=== PATIENT | male | born 1955 | race American Indian/Alaskan Native ===

== ENCOUNTER 2018-03-15 07:19 | Emergency (ER) | payer MEDICARE, OTHER ==
[2018-03-15 07:27] VITALS: TEMP 97.7; BMI 26.6
--- NOTE | 2018-03-15 07:51 | ED PDOC ---
Arrival/HPI - General Chief Complaint: Back Pain Time Seen by Provider: 03/15/18 07:22 Historian: Patient - History of Present Illness Narrative History of Present Illness (Text): 03/15/18 07:51 62 year old male whose past medical history includes diabetes, and hypertension, who presents to the Emergency department complaining of lower back pain radiating to the abdomen, which started earlier today. Patient reports that this morning while bending over to lift a box his back started hurting. He describes the pain as an aching pain that goes across his lower back to his abdomen. He took Naproxen earlier for pain alleviation. Patient denies fevers, chills, cough, shortness of breath, chest pain, dyspnea on exertion, nausea, vomiting, diarrhea, neck pain, headache, dizziness, or any other complaint. Time/Duration: 4-6 hours Symptom Onset: Sudden Symptom Course: Unchanged Quality: Aching Activities at Onset: Light Context: Home Past Medical History - Provider Review Nursing Documentation Reviewed: Yes - Infectious Disease Hx of Infectious Diseases: None - Cardiac Hx Cardiac Disorders: Yes Hx Hypertension: Yes - Pulmonary Hx Respiratory Disorders: No - Neurological Hx Neurological Disorder: No - HEENT Hx HEENT Disorder: Yes Hx Cataracts: Yes (LEFT EYE) - Renal Hx Renal Disorder: No - Endocrine/Metabolic Hx Endocrine Disorders: Yes Hx Diabetes Mellitus Type 2: Yes - Hematological/Oncological Hx Blood Disorders: No - Integumentary Hx Dermatological Disorder: No - Musculoskeletal/Rheumatological Hx Musculoskeletal Disorders: Yes Hx Arthritis: Yes - Gastrointestinal Hx Gastrointestinal Disorders: No - Genitourinary/Gynecological Hx Genitourinary Disorders: No - Psychiatric Hx Psychophysiologic Disorder: No Hx Substance Use: No - Surgical History Hx Cataract Extraction: Yes (LEFT EYE) - Anesthesia Hx Anesthesia: Yes Hx Anesthesia Reactions: No Hx Malignant Hyperthermia: No - Suicidal Assessment Feels Threatened In Home Enviroment: No Family/Social History - Physician Review Nursing Documentation Reviewed: Yes Family/Social History: No Known Family HX Smoking Status: Never Smoked Hx Alcohol Use: No Hx Substance Use: No Allergies/Home Meds Allergies/Adverse Reactions: Allergies No Known Allergies Allergy (Verified 03/15/18 07:36) Home Medications: Home Meds Medication Instructions Recorded Confirmed Aspirin [Low Dose Aspirin EC] 81 mg PO DAILY 03/18/16 03/15/18 Glimepiride [Amaryl] 4 mg PO DAILY 03/18/16 03/15/18 Lisinopril/Hydrochlorothiazide 1 tab PO DAILY 03/15/18 03/15/18 [Lisinopril-Hctz 10-12.5 mg Tab] Naproxen [Naprosyn] 500 mg PO PRN PRN 03/15/18 03/15/18 Review of Systems - Physician Review All systems were reviewed & negative as marked: Yes - Review of Systems Constitutional: absent: Fevers, Night Sweats Cardiovascular: absent: Chest Pain, Syncope Gastrointestinal: Abdominal Pain. absent: Diarrhea, Nausea, Vomiting, Appetite Changes Musculoskeletal: Back Pain. absent: Neck Pain Neurological: absent: Headache, Dizziness Physical Exam - Physical Exam Narrative Physical Exam (Text): 03/15/18 08:21 Constitutional: No acute distress. Head: Normocephalic. Atraumatic. Eyes: PERRL. ENT: Moist mucous membranes. Neck: Supple. Cardiovascular: Regular rate. Chest: No tenderness. Respiratory: Clear to auscultation bilaterally. GI: Soft. Nontender. Nondistended. Back: Bilateral paralumbar tenderness. No midline tenderness. Musculoskeletal: No tenderness or swelling of extremities. Skin: No rash. Neurologic: Alert, no focal deficit. Vital Signs Reviewed: Yes Vital Signs Temp Pulse Resp BP Pulse Ox 03/15/18 07:27 97.7 F 87 18 129/71 97 Temperature: Afebrile Blood Pressure: Normal Pulse: Regular Respiratory Rate: Normal Appearance: Positive for: Well-Appearing Mental Status: Positive for: Alert and Oriented X 3 Finger Stick Blood Glucose: 188 Medical Decision Making ED Course and Treatment: 03/15/18 07:51 Impression: 62 year old male complaining of lower back pain radiating to abdomen after trying to lift a box. Plan: -- Tylenol -- Flexeril -- Reassess and disposition Prior Visits: Notes and results from previous visits were reviewed. Progress Notes: - Lab Interpretations Lab Results: Lab Results 03/15/18 07:39: POC Glucose (mg/dL) 188 H - Scribe Statement The provider has reviewed the documentation as recorded by the Scribe Dani Fowler Provider Scribe Attestation: All medical record entries made by the Scribe were at my direction and personally dictated by me. I have reviewed the chart and agree that the record accurately reflects my personal performance of the history, physical exam, medical decision making, and the department course for this patient. I have also personally directed, reviewed, and agree with the discharge instructions and disposition. Disposition/Present on Arrival - Present on Arrival Any Indicators Present on Arrival: No History of DVT/PE: No History of Uncontrolled Diabetes: No Urinary Catheter: No History of Decub. Ulcer: No History Surgical Site Infection Following: None - Disposition Have Diagnosis and Disposition been Completed?: Yes Diagnosis: Back pain Disposition: HOME/ ROUTINE Disposition Time: 08:30 Patient Plan: Discharge Condition: STABLE Discharge Instructions (ExitCare): Low Back Pain in Adults Prescriptions: Acetaminophen [Tylenol 325mg tab] 2 tab PO Q4H #30 tab Cyclobenzaprine [Cyclobenzaprine HCl] 1 tab PO Q8H #12 tab Referrals: Nasra Aviles MD [Medical Doctor] - Follow up with primary Forms: [facility] (Congolese), WORK NOTE
[2018-03-15 09:05] VITALS: BP 145/80; PULSE 76; RESP 20; O2SAT 99
== END 2018-03-15 09:05 | disposition home or self-care (01) ==
LOC: ED 07:19
DX: M54.5 Low back pain (principal); E11.9 Type 2 diabetes mellitus without complications; I10 Essential (primary) hypertension